=== PATIENT | female | born 1980 | race Caucasian/White ===

== ENCOUNTER 2016-06-18 05:19 | Day surgery (SDC) | payer MEDICAID ==
[2016-06-16 16:28] LABS: ADD SCAN DIFF NO
[2016-06-16 16:33] LABS: ADD UMIC YES; BASOPHIL # 0.1 10^3/ul (0.0-0.1); BASOPHILS % 0.7 % (0.0-2.0); EOSINOPHILS # 0.1 10^3/ul (0.0-0.5); EOSINOPHILS % 1.9 % (0.0-7.0); HEMATOCRIT 41.5 % (37.0-47.0); HEMOGLOBIN 14.1 g/dl (12.0-16.0); LYMPHOCYTES # 3.2 10^3/ul (0.8-2.9); LYMPHOCYTES % 43.8 % (15.0-51.0); MEAN CORPUSCULAR HEMOGLOBIN 30.5 pg (29.0-33.0); MEAN CORPUSCULAR VOLUME 89.6 fl (82.0-101.0); MONOCYTE # 0.6 10^3/ul (0.3-0.9); MONOCYTES % 8.4 % (0.0-11.0); NEUTROPHIL # 3.3 10^3/ul (1.6-7.5); NEUTROPHILS % 45.1 % (39.0-77.0); PLATELET COUNT 383 10^3/UL (140-415); RED BLOOD COUNT 4.63 10^6/ul (4.20-5.40); RED CELL DISTRIBUTION WIDTH 12.2 % (11.5-14.5); URINE BILIRUBIN (Dip) NEGATIVE (NEGATIVE); URINE BLOOD (Dip) TRACE (NEGATIVE); URINE COLOR LT. YELLOW (YELLOW); URINE GLUCOSE (Dip) NEGATIVE (NEGATIVE); URINE KETONES (Dip) NEGATIVE (NEGATIVE); URINE LEUKOCYTE ESTERASE (Dip) 1+ (NEGATIVE); URINE NITRITE (Dip) NEGATIVE (NEGATIVE); URINE TOTAL PROTEIN (Dip) TRACE (NEGATIVE); URINE UROBILINOGEN (Dip) 1.0 E.U./dL (0.1-1.0); WHITE BLOOD COUNT 7.4 10^3/ul (4.8-10.8)
[2016-06-16 17:00] LABS: INR 0.99; PROTIME 13.1 Sec (12.2-14.2)
[2016-06-16 17:01] LABS: PARTIAL THROMBOPLASTIN TIME 27.6 Sec (25.0-35.0)
[2016-06-16 17:02] LABS: ALBUMIN 4.4 g/dl (3.3-4.9); ALBUMIN/GLOBULIN RATIO 1.22; BILIRUBIN,INDIRECT 0.3 mg/dl (0-1.1); BILIRUBIN,TOTAL 0.3 mg/dl (0.2-1.3)
[2016-06-16 17:04] LABS: CALCIUM 9.7 mg/dl (8.4-10.2); CREATININE 0.8 mg/dl (0.44-1.00); POTASSIUM 4.1 mmol/L (3.5-5.1)
[2016-06-16 17:23] LABS: BACTERIA,URINE MODERATE; SQUAMOUS EPITHELIAL CELL,UR MANY; URINE RBCS 0-2 /HPF ([, 0])
--- NOTE | 2016-06-17 19:37 | PREOPHP ---
DATE OF ADMISSION: 06/18/2016 She is to be admitted on 06/18/2016 for a laparoscopic tubal ligation. HISTORY OF PRESENT ILLNESS: This is a 35-year-old female, 5, para 4, who has requested sterilization on the basis of multiparity. This procedure was explained in detail in the office as well as the alternatives, the benefits , the risks, and possible complications. A failure rate of 1% of the procedure was discussed and understood. She was allowed to ask questions and all her questions were answered to her satisfaction, and she signed the appropriate surgical informed consent. PAST MEDICAL HISTORY: The patient denies any medical problems, cardiovascular disease, diabetes, renal disease, liver disease, thyroid disease, or neurological problems. ALLERGIES: HE HAS NO KNOWN ALLERGIES. MEDICATIONS: She takes no medications on a regular basis. She had a chlamydia positive test in the past but she was treated and retested and this was negative. FAMILY HISTORY: Entirely unremarkable. REVIEW OF SYSTEMS: A 12-point review of systems is noncontributory. PHYSICAL EXAMINATION: GENERAL: Well-developed, slightly obese. Height is 5 feet 5 inches and a weight of 207 pounds. BMI is 31. VITAL SIGNS: Showed temperature to be 98, blood pressure 145/95, respirations of 16 per minute, pulse is 69 per minute and regular. HEENT: Within normal limits. Pupils are PERRLA. NECK: Supple. Thyroid is nonpalpable. There is no lymphadenopathy. BREASTS: Show no masses or lumps. Nipples are normal. CHEST: Showed lungs to be clear to percussion and auscultation. HEART: Revealed normal sinus rhythm without murmur. ABDOMEN: Soft, obese. No hepatosplenomegaly. PELVIC: Normal external genitalia. Cervix is normal without lesions. Bimanual exam of uterus small, firm and no adnexal masses. EXTREMITIES: Within normal limits. NEUROLOGIC: Also normal. IMPRESSION: 1. Multiparity. The patient desires sterilization. 2. Obesity. PLAN: The patient is to be admitted for laparoscopic tubal ligation, possible laparotomy if necessary on 06/18/2016. Dictated By: DANY REA/JESUS Conf#: [id number] DID#: [id number] [facility] CENTERKole
[~2016-06-18] VITALS: Ht 160 cm; Wt 94.5 kg
[2016-06-18] VITALS (12 sets, daily range): BP systolic 107–163; BP diastolic 87–97; PULSE 60–92; RESP 15–21; Ht 160 cm; Wt 94.5 kg
[2016-06-18] MEDS ORDERED: LACTATED RINGER'S 1,000 ML IV SCH ×2 (06:00→08:31)
[2016-06-18] MEDS ORDERED: BUPIVACAINE 0.5%/EPI (SDV) 30 ML INJ ONE ×2 (06:46→14:40)
[2016-06-18] MEDS ORDERED: PROPOFOL 60 ML ONE (07:30)
[2016-06-18] MEDS ORDERED: LIDOCAINE 2% (SDV) 5 ML INJ ONE (07:31)
[2016-06-18] MEDS ORDERED: ROCURONIUM 50 MG INJ ONE ×2 (07:31→08:22)
[2016-06-18] MEDS ORDERED: MIDAZOLAM 1 MG/ML 2 ML INJ ONE (07:34)
[2016-06-18] MEDS ORDERED: FENTAnyl 50 MCG/ML VIAL ONE ×2 (07:34→08:14)
[2016-06-18] MEDS ORDERED: DEXAMETHASONE 4 MG/ML 1 ML INJ ONE (08:04)
[2016-06-18] MEDS ORDERED: ONDANSETRON 4 MG INJ ONE (08:05)
[2016-06-18] MEDS ORDERED: PROPOFOL 20 ML ONE (08:22)
[2016-06-18] MEDS ORDERED: CEFAZOLIN 1 GM INJ ONE (08:22)
[2016-06-18] MEDS ORDERED: GLYCOPYRROLATE 0.4 MG INJ ONE (08:25)
[2016-06-18] MEDS ORDERED: NEOSTIGMINE 3 MG/3 ML SYRINGE ONE (08:25)
[2016-06-18] MEDS ORDERED: KETOROLAC 30 MG INJ ONE (08:35)
--- NOTE | 2016-06-18 08:35 | PD.PPDC ---
TRACTOR [employer]PER[employer] Discharge Instruction Diagnosis Final Diagnosis: Multiparity.Obesity Condition Patient Condition: Good Diet Diet: Resume Regular Diet Activity/Restrictions Activity: Normal Activity May Shower Restrictions: No Sexual Activity Nothing in the Vagina No [place] Wound/Drain Care Instructions Wound/Drain Care Instructions: Keep clean and dry Follow-up Follow-up with Physician: 2, Week/Weeks Return to clinic for ONLINE ACTIVIST Instructions: Fever greater than 101 Worsening abdominal pain More than 2 pads per hour Unable to tolerate diet Surgical Instructions: Incisional Drainage Incisional Redness DANY BUENO MD June 18, 2016 08:35
[2016-06-18] MEDS ORDERED: MEPERIDINE 25 MG INJ IV PRN (09:00)
[2016-06-18] MEDS ORDERED: IBUPROFEN 600 MG TAB PO PRN (09:00)
[2016-06-18] MEDS ORDERED: LABETALOL HCL 20MG INJ IV PRN (09:00)
[2016-06-18] MEDS ORDERED: DIPHENHYDRAMINE 50 MG INJ IV PRN (09:00)
[2016-06-18] MEDS ORDERED: hydrALAzine 20 MG INJ IV PRN (09:00)
[2016-06-18] MEDS ORDERED: ONDANSETRON 4 MG INJ IV PRN ×2 (09:00)
[2016-06-18] MEDS ORDERED: OXYCODONE/ACETAMINOPHEN (5/325) TAB PO PRN ×2 (09:00)
[2016-06-18] MEDS ORDERED: morphine 2 MG INJ IV PRN (09:00)
[2016-06-18] MEDS ORDERED: ACETAMINOPHEN 325 MG TAB PO PRN (09:00)
[2016-06-18] MEDS ORDERED: EPHEDrine SULFATE 50 MG/5 ML SYG IV PRN (09:00)
[2016-06-18] MEDS ORDERED: FENTAnyl 50 MCG/ML VIAL IV PRN ×3 (09:00)
--- NOTE | 2016-06-18 09:33 | OPR ---
DATE OF OPERATION: 06/18/2016 PREOPERATIVE DIAGNOSES: 1. Multiparity. 2. Obesity. POSTOPERATIVE DIAGNOSES: 1. Multiparity. 2. Obesity. OPERATION PERFORMED: Laparoscopic bilateral tubal ligation. SURGEON: Dany Smith MD. ANESTHESIOLOGIST: Dr. Titus. ANESTHESIA: General anesthesia. COMPLICATIONS: None. SPECIMENS: None. ESTIMATED BLOOD LOSS: Negligible. PROCEDURE AND FINDINGS: With the patient under general anesthesia, she was laid on the table in the dorsal lithotomy position. Her abdomen was prepped with ChloraPrep and the vagina and perineum wit h Betadine. After 3 minutes, she was dressed in the usual sterile fashion. Bladder was catheteriz ed and emptied. A small 5 mm incision was done at the level of the umbilicus. A Veress needle was inserted while we were tenting up the anterior abdominal wall. Once the tip of the needle was ascer tained to be intraperitoneal by the hanging drop of saline technique, it was then connected to the C O2 insufflator. Good pneumoperitoneum was obtained. The needle was removed and a 5 mm trocar was p assed in. Through this port, a Kleppinger 5 mm laparoscope with the Endocamera was inserted. The p atient was placed in Trendelenburg position. Pelvic organs looked normal. There were no signs of p athology. A second port was placed under the direct vision in the hypogastric area with another 5 m m port. Through this second port the Kleppinger clamp with the gyrus device at 35 foley of current was inserted. The left tube was identified, followed to its fimbriated end and then grasped in the mid portion and burned through and through for 1.5 cm. The same was repeated on the contralateral s luci. Pictures were taken for documentation. There was no bleeding or complications. All the instr uments were then removed from the patient's abdomen as well as much CO2 as possible. The incisions were infiltrated with 0.5% Marcaine with epinephrine, a total of 20 mL. They were closed with 4-0 M onocryl. Band-Aids were applied. The patient withstood the procedure well and was taken to recover y room with all vital signs stable. EBL was negligible. Needle, sponge and instrument count at the end of the procedure was correct twice. Dictated By: DANY REA/NTS Conf#: [id number] [facility]#: [id number]
== END 2016-06-18 11:30 | disposition home or self-care (01) ==
LOC: SDS 05:19
PROVIDERS: ATTEND Specialist
DX: Z30.2 Encounter for sterilization (principal); E66.9 Obesity, unspecified; Z68.36 Body mass index [BMI] 36.0-36.9, adult
CPT/HCPCS: 58670; 80053; 81001; 84703; 85025; 85610; 85730; 86850; 86900; 86901; J0690; J1100; J2250; J2405; J3010; Z7512; Z7610; 81003; J1885; J2710